=== PATIENT | male | born 1960 | race Caucasian/White ===

== ENCOUNTER 2018-12-02 22:16 | Inpatient (IN) | payer BC ==
[~2018-12-02] VITALS: Ht 177.8 cm; Wt 122.8 kg
[2018-12-02] MEDS ORDERED: ALBUTEROL SULF 2.5 MG/0.5ML(0.5%) NEB SOLN ONE (23:29)
[2018-12-02] MEDS ORDERED: IPRATROPIUM BROM 0.5 MG/2.5ML INH SOL ONE (23:29)
[2018-12-02 23:42] LABS: Eosinophils # (auto) 0.1 uL; Hemoglobin 17.8 g/dL (13.5-17.5); Lymphocytes # (auto) 0.8 uL; Mean Corpuscular Hemoglobin 30.4 pg (28.0-32.0); Mean Corpuscular Hgb Conc. 34.2 g/dL (32.0-36.0); Monocytes # (auto) 0.7 uL; Nucleated Red Blood Cells % 0.1 %; Platelet Count (auto) 141 10^3/uL (140-450)
[2018-12-02 23:44] LABS: Basophils # (auto) 0.1 uL; Basophils % (auto) 0.7 % (0.0-2.0); Eosinophils % (auto) 0.9 % (0.0-7.0); Lymphocytes % (auto) 11.2 % (10.0-50.0); Mean Corpuscular Volume 88.8 fL (80.0-100.0); Monocytes % (auto) 9.9 % (0.0-12.0); Neutrophils # (auto) 5.4 uL; Neutrophils % (auto) 77.3 % (37.0-80.0); Red Blood Cells 5.86 10^6/uL (4.5-5.90); Red Cell Distribution Width 13.9 % (11.8-14.3); White Blood Cell 6.9 10^3/uL (4.4-10.8)
[2018-12-02] MEDS ORDERED: IPRATROPIUM BROM 0.5 MG/2.5ML INH SOL NEB ONE (23:45)
[2018-12-02] MEDS ORDERED: methylPREDNISolone SOD SUCC 125 MG/2 ML VL IV ONE (23:45)
[2018-12-02] MEDS ORDERED: ALBUTEROL SULF 2.5 MG/0.5ML(0.5%) NEB SOLN NEB ONE (23:45)
[2018-12-02] MEDS ORDERED: SODIUM CHLORIDE 0.9% 1,000 ML IV ONE (23:45)
[2018-12-02 23:57] LABS: Alanine Aminotransferase 41 U/L (16-61); Albumin 3.9 g/dL (3.4-5.0); Anion Gap 7 (5-15); Aspartate Aminotransferase 25 U/L (15-37); BUN/Creatinine Ratio 14.8; Blood Urea Nitrogen 16 mg/dL (7-18); Calcium 8.5 mg/dL (8.5-10.1); Carbon Dioxide 25 mmol/L (21-32); Chloride 103 mmol/L (98-107); GFR African American 91 mL/min; GFR Non-African American 75 mL/min; Glucose 131 mg/dL (74-106); Magnesium 2.2 mg/dL (1.6-2.6); Potassium 4.1 mmol/L (3.5-5.1); Sodium 135 mmol/L (136-145)
[2018-12-03 00:05] LABS: Alkaline Phosphatase 73 U/L (45-117); Bilirubin, Total 0.8 mg/dL (0.2-1.0); Total Protein 7.4 g/dL (6.4-8.2)
[2018-12-03] MEDS ORDERED: IOHEXOL 300 MG/ML 100ML BOTTLE IJ ONE (04:14)
[2018-12-03] MEDS ORDERED: ALBUTEROL SULF 2.5 MG/0.5ML(0.5%) NEB SOLN NEB ONE (04:30)
[2018-12-03] MEDS ORDERED: IPRATROPIUM BROM 0.5 MG/2.5ML INH SOL NEB ONE (04:30)
[2018-12-03 05:23] LABS: Urine WBC None Seen /hpf (0 - 3)
[2018-12-03 05:35] LABS: Urine Bacteria NONE SEEN /hpf (None Seen); Urine Blood Negative /uL (Negative); Urine Mucus FEW (None Seen); Urine Specific Gravity 1.032 (1.001-1.035)
[2018-12-03] MEDS ORDERED: ONDANSETRON HCL 4 MG/2 ML VIAL IV PRN (07:00)
[2018-12-03] MEDS ORDERED: ACETAMINOPHEN 325 MG TAB PO PRN (07:00)
[2018-12-03] MEDS ORDERED: MORPHINE SULF INJ 2 MG/ML SYRINGE 1ML IV PRN (07:00)
[2018-12-03] MEDS ORDERED: NITROGLYCERIN 0.4 MG SL TAB SL PRN (07:00)
[2018-12-03] MEDS ORDERED: TEMAZEPAM 15 MG CAP PO PRN (07:00)
[2018-12-03] MEDS ORDERED: HYDROcodone-ACET 5/325MG TAB PO PRN (07:00)
[2018-12-03] MEDS ORDERED: guaiFENesin-DM 100/10mg/5ml SYR PO PRN (07:45)
[2018-12-03 09:06] VITALS: BP 148/94
[2018-12-03 09:22] VITALS: BP 148/94
--- NOTE | 2018-12-03 09:50 | NUR ---
Respiratory note: PT ASSESSED FOR PRN MEDNEB TX. TX NOT INDICATED AT THIS TIME. SPO2 96% ON 2L NC HR 91 RR 18 B/S CLEAR/DIMINISHED. PT AWARE TO HAVE RT PAGED IF THEY BECOME SOB.
[2018-12-03] MEDS ORDERED: LEVOFLOXACIN 500MG 100 ML IV SCH (10:00)
[2018-12-03] MEDS ORDERED: methylPREDNISolone SOD SUCC 125 MG/2 ML VL IV SCH (10:00)
[2018-12-03 10:20] VITALS: BP 148/94
[2018-12-03] MEDS: FAMOTIDINE 20 MG TAB PO SCH ×2 (10:42→22:02)
[2018-12-03 13:00] VITALS: BP 157/89
[2018-12-03 16:37] VITALS: BP 129/78
[2018-12-03] MEDS: ALBUTEROL SULF 2.5 MG/0.5ML(0.5%) NEB SOLN NEB PRN (19:06)
[2018-12-03] MEDS: IPRATROPIUM BROM 0.5 MG/2.5ML INH SOL NEB PRN (19:07)
--- NOTE | 2018-12-03 19:55 | NUR ---
Opening Shift Note Assumed care of patient, awake and alert x4. No S/S of distress/SOB on room air after ambulation to wifes bed, instructed to place oxygen back on, denies pain. Instructed on POC and to call for assistance PRN, will continue to monitor for changes Q1hr and PRN.
[2018-12-03 20:00] VITALS: BP 157/85
[2018-12-03] MEDS ORDERED: CITA-244 PO (20:40)
[2018-12-03] MEDS ORDERED: METO25TA62 PO (20:40)
[2018-12-03] MEDS ORDERED: LISI-646 PO (20:40)
[2018-12-03] MEDS ORDERED: PRA25T PO ×2 (20:40→20:56)
--- NOTE | 2018-12-03 20:50 | NUR ---
Called/paged Hospitalist Nasim called re:request to continue home medications. Orders received to continue them. Continue care.
--- NOTE | 2018-12-03 20:55 | NUR ---
Medications at bedside Pt signs form acknowledging hospital policy education and risks of having home meds at bedside with , Patient declines to turn over to pharmacy, states they will be sent home tomorrow. Pt informed to not take any medications not given by staff, patient acknowledges and intents to comply,
[2018-12-03] MEDS ORDERED: PRAMIPEXOLE DIHYDROCHLORIDE MO 0.25 MG TAB PO ONE (22:00)
[2018-12-03] MEDS: METOPROLOL TARTRATE 25 MG TAB PO SCH (22:02)
[2018-12-03] MEDS: CITALOPRAM HYDROBR 20 MG TAB PO SCH (22:03)
[2018-12-03] MEDS: LISINOPRIL 20 MG TAB PO SCH (22:06)
[2018-12-04] VITALS (7 sets, daily range): BP systolic 112–150; BP diastolic 58–86
[2018-12-04] MEDS: ALBUTEROL SULF 2.5 MG/0.5ML(0.5%) NEB SOLN NEB PRN ×3 (00:12→23:06)
[2018-12-04] MEDS: IPRATROPIUM BROM 0.5 MG/2.5ML INH SOL NEB PRN ×3 (00:12→23:06)
--- NOTE | 2018-12-04 05:49 | NUR ---
Rounds Patient sleeping, respirations even and unlabored. No S/S of distress/SOB on 3L NC. Will continue to monitor changes q1hr and PRN.
[2018-12-04 06:55] LABS: Basophils # (auto) 0 uL; Basophils % (auto) 0.3 % (0.0-2.0); Eosinophils # (auto) 0 uL; Hematocrit 51.2 % (41.0-53.0); Hemoglobin 17.1 g/dL (13.5-17.5); Lymphocytes # (auto) 0.7 uL; Lymphocytes % (auto) 5.4 % (10.0-50.0); Mean Corpuscular Hemoglobin 30.1 pg (28.0-32.0); Mean Corpuscular Hgb Conc. 33.4 g/dL (32.0-36.0); Mean Corpuscular Volume 90.3 fL (80.0-100.0); Monocytes # (auto) 0.7 uL; Monocytes % (auto) 5.4 % (0.0-12.0); Neutrophils # (auto) 11.4 uL; Neutrophils % (auto) 88.9 % (37.0-80.0); Nucleated Red Blood Cells % 0.9 %; Platelet Count (auto) 172 10^3/uL (140-450); Red Blood Cells 5.67 10^6/uL (4.5-5.90); Red Cell Distribution Width 14.1 % (11.8-14.3); White Blood Cell 12.8 10^3/uL (4.4-10.8)
--- NOTE | 2018-12-04 06:58 | NUR ---
Rounds Patient awake and alert. No S/S of distress/SOB on 2.5L NC, saturation 93-95%, denies pain. Will continue to monitor changes q1hr and PRN.
[2018-12-04 07:22] LABS: Albumin 3.8 g/dL (3.4-5.0); Calcium 8.8 mg/dL (8.5-10.1); Potassium 4.5 mmol/L (3.5-5.1)
[2018-12-04 07:24] LABS: BUN/Creatinine Ratio 19.8
[2018-12-04 07:26] LABS: Bilirubin, Total 0.6 mg/dL (0.2-1.0); Total Protein 7.3 g/dL (6.4-8.2)
--- NOTE | 2018-12-04 07:30 | NUR ---
OPENING NOTE Assumed care of patient from NOC RNTg. Patient awake and alert with no S/S of distress/SOB or pain. Nasal cannula in position, connected to 3L O2. Instructed on POC and to call for assist PRN, verbalized understanding. Bed in lowest, locked position with side rails up x2 and call light within reach. Will continue to monitor for changes Q1hr and PRN.
[2018-12-04] MEDS: LEVOFLOXACIN 500 MG TAB PO SCH (10:29)
[2018-12-04] MEDS: LISINOPRIL 20 MG TAB PO SCH (10:29)
[2018-12-04] MEDS: FAMOTIDINE 20 MG TAB PO SCH ×2 (10:29→22:35)
[2018-12-04] MEDS: METOPROLOL TARTRATE 25 MG TAB PO SCH ×2 (10:30→22:35)
[2018-12-04] MEDS: CITALOPRAM HYDROBR 20 MG TAB PO SCH (10:31)
--- NOTE | 2018-12-04 11:50 | NUR ---
RT NOTE: WENT TO PTS ROOM TO ASSESS FOR PRN BREATHING TX, PT STATED THAT HE WAS BREATHING FINE. NO S/S OF SOB. HR 71, SPO2 95% ON 2 L NC, BREATH SOUNDS CLEAR/DIMINISHED. PT AWARE TO CALL IF HAVING ANY SOB. WILL CONTINUE TO MONITOR PT.
--- NOTE | 2018-12-04 19:24 | NUR ---
CLOSING NOTE Endorsed care of patient to NOC Roslyn MONTOYA. Patient currently receiving nebulizer treatment.
--- NOTE | 2018-12-04 19:30 | NUR ---
OPENING SHIFT NOTE Patient in bed alert and oriented x 4, verbally coherent able to make needs known. Patient with RT at bedside for breathing tx. Patient denies pain and discomfort at this time. Plan of care discussed, patient verbalized understanding. All needs attended, will continue to monitor.
[2018-12-05] MEDS ORDERED: PRAMIPEXOLE DIHYDROCHLORIDE MO 0.25 MG TAB PO ONE ×2 (05:30→05:50)
[2018-12-05 05:40] VITALS: BP 128/69
--- NOTE | 2018-12-05 06:29 | NUR ---
RT NOTE: WENT TO PTS ROOM TO ASSESS FOR PRN BREATHING TX, PT STATED THAT HE WAS BREATHING FINE. NO S/S OF SOB. HR 78 SPO2 96% ON 2 L NC, BREATH SOUNDS CLEAR/DIMINISHED. PT AWARE TO CALL IF HAVING ANY SOB. WILL CONTINUE TO MONITOR PT.
--- NOTE | 2018-12-05 07:40 | NUR ---
OPENING NOTE Assumed care of patient from NOC RN, Roslyn. Patient resting in bed with eyes closed, even rise and fall of chest noted. No S/S of distress/SOB or pain. Nasal cannula in place, connected to 1L O2. Bed in lowest, locked position with side rails up x2 and call light within reach. Will continue to monitor for changes Q1hr and PRN.
--- NOTE | 2018-12-05 10:31 | NUR ---
CULTURE Per patient unable to expel any fluid or mucous for respiratory culture but will continue trying.
[2018-12-05] MEDS: LEVOFLOXACIN 500 MG TAB PO SCH (10:36)
[2018-12-05] MEDS: CITALOPRAM HYDROBR 20 MG TAB PO SCH (10:36)
[2018-12-05] MEDS: METOPROLOL TARTRATE 25 MG TAB PO SCH ×2 (10:37→21:50)
[2018-12-05] MEDS: FAMOTIDINE 20 MG TAB PO SCH ×2 (10:37→21:49)
[2018-12-05] MEDS: LISINOPRIL 20 MG TAB PO SCH (10:37)
--- NOTE | 2018-12-05 16:40 | NUR ---
OXYGEN Patient stated he took himself off of O2 to go to restroom and forgot to put back on for approximately 1 hr. States that he could tell a difference in breathing pattern without it, "I started to feel light headed". Patient replaced nasal cannula and is on 1L O2 with saturation level fluctuating between 90-94%. Increased O2 to 2L and reassessed 30mins later, saturation level remained between 90-94%. Patient asked to be checked without any oxygen. Nasal cannula removed and reassessed 30 mins later, saturation level between 82-85%. Patient currently connected to 2L O2 via NC. Patient's biggest concern is the need for home oxygen. Explained that there is a scheduled ABG for the a.m. and that would give a more accurate result. Will continue to monitor Q1hr and PRN.
[2018-12-05 17:00] VITALS: BP 124/74
[2018-12-05] MEDS: IPRATROPIUM BROM 0.5 MG/2.5ML INH SOL NEB PRN (17:52)
[2018-12-05] MEDS: ALBUTEROL SULF 2.5 MG/0.5ML(0.5%) NEB SOLN NEB PRN (17:52)
--- NOTE | 2018-12-05 19:20 | NUR ---
CLOSING NOTE Endorsed care of patient to NOC Roslyn MONTOYA.
--- NOTE | 2018-12-05 19:33 | NUR ---
Opening shift note Patient in bed watching TV alert and oriented x 4. Patient's respiration even and unlabored, denies pain and discomfort at this time. Plan of care discussed, patient verbalized understanding. All needs attended, will continue to monitor.
[2018-12-05] MEDS: PRAMIPEXOLE DIHYDROCHLORIDE MO 0.25 MG TAB PO SCH (21:49)
[2018-12-05 22:23] VITALS: BP 123/73
--- NOTE | 2018-12-05 22:44 | NUR ---
Resp cx Specimen sample obtained and sent to lab via bullet.
[2018-12-06 04:45] VITALS: BP 117/77
--- NOTE | 2018-12-06 07:25 | NUR ---
Opening Note Received report from cnc machinist 2nd shift RN. Patient is awake, alert and oriented x4. No signs or symptoms of distress noted at this time. Patient is on 2L NC, denies shortness of breath at this time. Patient denies pain at this time. Reviewed plan of care with patient, patient verbalized understanding. Bed in low and locked position, call light within reach. Will continue to monitor Q1 hour and PRN.
[2018-12-06 09:00] VITALS: BP 128/72
--- NOTE | 2018-12-06 09:06 | NUR ---
PT ASSESSED FOR PRN HHN TX. PT IS ON 2LNC, SPO2 92%, HR 72, RR 16. NO S/S OF RESPIRATORY DISTRESS AT THIS TIME. PT AWARE OF BREATHING TX AVAILABLE IF NEEDED. BREATHING TX NOT INDICATED AT THIS TIME. WILL CONTINUE TO MONITOR.
[2018-12-06 09:22] VITALS: BP 117/77
[2018-12-06] MEDS: CITALOPRAM HYDROBR 20 MG TAB PO SCH (09:35)
[2018-12-06] MEDS: FAMOTIDINE 20 MG TAB PO SCH ×2 (09:35→22:38)
[2018-12-06] MEDS: LEVOFLOXACIN 500 MG TAB PO SCH (09:35)
[2018-12-06] MEDS: LISINOPRIL 20 MG TAB PO SCH (09:35)
[2018-12-06] MEDS: METOPROLOL TARTRATE 25 MG TAB PO SCH ×2 (09:35→22:39)
--- NOTE | 2018-12-06 10:50 | NUR ---
Dr. Bharti Loza at bedside Dr. Bharti Loza at bedside reviewing plan of care with patient.
--- NOTE | 2018-12-06 11:33 | NUR ---
Nutrition Assessment Notes please see attached link for complete assessment Est. Needs ABW [id number] kcal (20-23 kcal/kgBW), 99-108 gms pro (1.0-1.1 gms/kgBW). Will continue to monitor pertinent labs and reassess nutrient need prn Addendum: 12/06/18 at [address] Amended: Links added.
[2018-12-06 13:16] VITALS: BP 118/73
--- NOTE | 2018-12-06 15:50 | NUR ---
Spoke with Dr. Bharti Loza Patient is very agitated and angry stating he wants to go home. Wants to know why the doctor is making him stay another day. Patient wants to be discharged not leave AMA. Dr. Bharti Loza said he is not at the hospital and is not going to put in a discharge order today, states that if the patient wants to leave it will have to be AMA. Informed patient, patient is very frustrated states he is going to call his systems tester and insurance company. Will notify charge nurse Penny. Will continue to monitor
--- NOTE | 2018-12-06 16:05 | NUR ---
Patient not leaving AMA Patient states his insurance will not cover hospital stay if he leaves AMA.
[2018-12-06 17:06] VITALS: BP 146/73
[2018-12-06] MEDS: IPRATROPIUM BROM 0.5 MG/2.5ML INH SOL NEB PRN (18:58)
[2018-12-06] MEDS: ALBUTEROL SULF 2.5 MG/0.5ML(0.5%) NEB SOLN NEB PRN (18:58)
--- NOTE | 2018-12-06 19:20 | NUR ---
Closing Note Report given to cook night RN. Patient is awake, alert and oriented x4. No signs or symptoms of distress noted at this time
--- NOTE | 2018-12-06 19:30 | NUR ---
Opening Shift Note Assumed care of patient, awake and alert x4. Patient denies pain at this time. Instructed on plan of care and to call for assistance as needed. Bed is locked in lowest position, side rails x 2 are up, and call light is within reach.
[2018-12-06 22:00] VITALS: BP 123/61
[2018-12-06] MEDS: PRAMIPEXOLE DIHYDROCHLORIDE MO 0.25 MG TAB PO SCH (22:38)
--- NOTE | 2018-12-07 00:59 | NUR ---
ROUNDS Patient sleeping in bed with symmetrical chest rise and fall. No S/S of distress/SOB noted. Bed is locked in lowest position, side rails x 2 are up, and call light is within reach.
[2018-12-07 05:00] VITALS: BP 108/69
--- NOTE | 2018-12-07 07:12 | NUR ---
CLOSING SHIFT NOTE Endorsed patient care to Onelia Baird RN.
--- NOTE | 2018-12-07 07:35 | NUR ---
OPENING SHIFT PATIENT AWAKE, ALERT, AND ORIENTED. X4. NO S/S OF DISTRESS, SOB, OR PAIN. RESPIRATIONS EVEN AND UNLABORED. PATIENT STATES, "I WANT TO GO HOME. I JUST WANT TO BE DISCHARGED SOON COLLAZO COMES IN. " DISCUSSED POC WITH PATIENT. PATIENT VERBALIZED UNDERSTANDING. BED IS IN LOWEST POSITION, SIDE RAILS UP X2, AND CALL LIGHT WITHIN REACH. WILL CONTINUE TO MONITOR Q1 HOUR AND PRN.
[2018-12-07 08:14] VITALS: BP 116/67
[2018-12-07] MEDS: LEVOFLOXACIN 500 MG TAB PO SCH (09:44)
[2018-12-07] MEDS: FAMOTIDINE 20 MG TAB PO SCH (09:44)
[2018-12-07] MEDS: CITALOPRAM HYDROBR 20 MG TAB PO SCH (09:44)
[2018-12-07] MEDS: LISINOPRIL 20 MG TAB PO SCH (09:45)
[2018-12-07] MEDS: METOPROLOL TARTRATE 25 MG TAB PO SCH (09:45)
--- NOTE | 2018-12-07 11:08 | NUR ---
Respiratory note: PT ASSESSED FOR PRN MED NEB TX. POX 91% ON RA, HR 78, RR 20. B/S ARE DIMINISHED THROUGHOUT. PT DENIES ANY RESPIRATORY DISTRESS AND HE IS AWARE TO PRESS THE CALL LIGHT IF HE FEELS ANY SOB TO RECEIVE A MED NEB TX.
[2018-12-07 12:10] VITALS: BP 129/73
--- NOTE | 2018-12-07 14:05 | NUR ---
CONTACTED DR COLLAZO PER PATIENT REQUEST. PATIENT IS UPSET AND WANTS TO LEAVE. Abel STATED DR. Virgilio CHONG IS PATIENT'S ASSIGNED PHYSICIAN HERE IN THE HOSPITAL. Abel STATED HE HAS ALREADY SPOKE TO DR. CHONG REGARDING THE MATTER.
--- NOTE | 2018-12-07 14:07 | NUR ---
DR. ARLETTE BATES M.D. PAGED TO UPDATE Abel ON PATIENT REQUEST FOR D/C AWAITING Abel REPLY
--- NOTE | 2018-12-07 14:26 | NUR ---
FOOD SERVER CONTACTED PER PATIENT REQUEST. PATIENT IS UPSET. STATING, "I HAVE NOT BEEN GIVEN ANY MEDICAL ADVICE. NOBODY HAS COME TO SEE ME TODAY BESIDES NURSES. NO DOCTORS HAVE PUT A STETHOSCOPE TO MY CHEST. ALL I WANT TO DO IS GO SEE MY PRIMARY DOCTOR. MY INSURANCE TOLD ME NOT TO SIGN ANY PAPERS." CHARGE R.N. AT BEDSIDE DISCUSSING POC WITH PATIENT Abel CHONG AWARE OF SITUATION
[2018-12-07 15:22] VITALS: BP 118/65
--- NOTE | 2018-12-07 15:38 | NUR ---
DISCHARGE Discharge instructions given as ordered. Encourage to follow up with PCP as instructed and to make appointment. All questions and concerns addressed. Patient verbalized understanding. IV removed with catheter intact, pressure dressing applied. Telemetry unit returned to [facility]. Patient taken to vehicle via wheelchair with all personal belongings, accompanied by staff and family member. No distress noted at time of departure.
== END 2018-12-07 15:40 | disposition home or self-care (01) | DRG 189 ==
LOC: ER 22:16 → TELE 12-03 07:01 → TELE-EAST 12-03 08:24
PROVIDERS: ADMIT Nurse Practitioner; ATTEND Internal Medicine Pulmonary Disease
DX: J96.01 Acute respiratory failure with hypoxia (principal); J45.902 Unspecified asthma with status asthmaticus; E66.01 Morbid (severe) obesity due to excess calories; I10 Essential (primary) hypertension; J20.9 Acute bronchitis, unspecified; G25.81 Restless legs syndrome; B34.9 Viral infection, unspecified; F32.9 Major depressive disorder, single episode, unspecified; Z79.899 Other long term (current) drug therapy; Z68.38 Body mass index [BMI] 38.0-38.9, adult
CPT/HCPCS: 36415; 36600; 71045; 71260; 80053; 81001; 82805; 83735; 84484; 85025; 85379; 87070; 87205; 87804; 93005; 94640; G0378; J1956